=== PATIENT | male | born 1990 | race Caucasian/White ===

== ENCOUNTER → 2020-10-19 16:39 | Outpatient (CLI) | payer OTHER, SELFPAY ==
--- NOTE | 2020-10-19 16:48 | DI.RAD.S_ITS ---
PROCEDURE: XR FOOT RT MIN 3V INDICATIONS: CONTUSION TECHNIQUE: 3 views of the foot were acquired. COMPARISON: None. FINDINGS: Bones: No fractures or dislocations. No suspicious bony lesions. Soft tissues: No tibiotalar joint effusion. Achilles tendon appears normal. IMPRESSION: No fracture or other acute finding. Dictated by: Dilip Musa M.D. on 10/19/2020 at 19:53 Approved by: Dilip Musa M.D. on 10/19/2020 at 19:53
== END ==
PROVIDERS: Referring Provider Podiatrist; Visit Provider Podiatrist
DX: S90.129A Contusion of unspecified lesser toe(s) without damage to nail, initial encounter (principal)
CPT/HCPCS: 73630

== ENCOUNTER → 2021-05-06 10:56 | Outpatient (ROUT) | payer OTHER, SELFPAY ==
[2021-05-06 13:53] LABS: COVID19 -Nasal RAPID Negative (Negative)
== END ==
PROVIDERS: Visit Provider Family Medicine
DX: Z20.822 Contact with and (suspected) exposure to COVID-19 (principal)
CPT/HCPCS: 87635